=== PATIENT | female | born 1960 | race Caucasian/White ===

== ENCOUNTER 2023-10-09 11:04 | Outpatient (CLI) | payer OTHER, SELFPAY ==
[2023-10-09 12:30] LABS: Hematocrit 40.2 % (37.0-47.0); Hemoglobin 13.4 g/dL (12.0-15.0); Mean Corpuscular HGB Conc 33.3 g/dl (32-36); Mean Corpuscular Hemoglobin 29.6 pg (26-34); Mean Corpuscular Volume 88.9 fl (80-100); Mean Platelet Volume 10.1 fl (7.4-10.4); Platelet Count Result 200 k/mm3 (150-375); Red Blood Count 4.52 M/mm3 (4.2-5.4); Red Cell Distribution Width 13.4 % (11.5-14.5); White Blood Count 5.4 K/mm3 (4.5-10.0)
[2023-10-09 12:44] LABS: Albumin Level 4.6 g/dL (3.5-5.1); Anion Gap 7 mmol/L (4-12); Blood Urea Nitrogen 16 mg/dL (7-17); Calcium 10.1 mg/dL (8.4-10.2); Carbon Dioxide 27 mmol/L (22-30); Chloride 106 mmol/L (98-107); Estimated Glomerular Filt Rate > 60; Glucose 94 mg/dL (65-110); Potassium 3.9 mmol/L (3.4-5.0); Sodium 140 mmol/L (137-145)
[2023-10-09 12:46] LABS: Iron 101 ug/dL (37-170)
[2023-10-09 12:51] LABS: Prealbumin 20.1 mg/dL (17.6-36.0)
[2023-10-15 09:58] LABS: Vitamin B1 6 nmol/L (8-30)
== END 2023-10-09 11:05 | disposition home or self-care (01) ==
PROVIDERS: Visit Provider Surgery Plastic and Reconstructive Surgery
DX: R63.4 Abnormal weight loss (principal)
CPT/HCPCS: 36415; 80048; 82040; 83036; 83540; 84134; 84425; 85027

== ENCOUNTER 2023-10-21 14:24 | Outpatient (CLI) | payer OTHER, SELFPAY ==
--- NOTE | 2023-10-21 14:33 | ECG_ITS ---
Test Date: 2023-10-21 14:43:04 Measurements Intervals [place] Rate: 58 P: 12 KS: 184 QRS: 9 QRSD: 80 T: 24 QT: 402 QTc: 396 Interpretive Statements SINUS BRADYCARDIA LOW QRS VOLTAGE IN PRECORDIAL LEADS PATTERN CONSISTENT WITH PULMONARY DISEASE CONSIDER INFERIOR INFARCT, AGE INDETERMINATE ABNORMAL ECG No previous ECG available for comparison Electronically Signed On 10-21-2023 15:05:39 CDT by Jozfe Rios D.O.
== END 2023-10-21 14:25 | disposition home or self-care (01) ==
LOC: ANHSURGERY 14:28
PROVIDERS: PCP Internal Medicine; Visit Provider Surgery Plastic and Reconstructive Surgery
DX: Z01.818 Encounter for other preprocedural examination (principal); I25.10 Atherosclerotic heart disease of native coronary artery without angina pectoris; R94.31 Abnormal electrocardiogram [ECG] [EKG]
CPT/HCPCS: 93005

== ENCOUNTER 2023-10-29 02:09 | Day surgery (SDC) | payer OTHER, SELFPAY ==
[2023-10-20 09:03] VITALS: BMI 28.0
--- NOTE | 2023-10-20 09:03 | PC.NURSE ---
Report to the Outpatient Waiting Room, entrance under the green pavilion located off [facility], at time _0830_ on date _[id number]_. Planned Procedure Time: _1030_. Time changes happen often and if your time is changed the preop area will call you the afternoon before. - You and your visitor will be asked to self-screen and do not enter if you have any COVID symptoms. - A mask is optional within the hospital at this time. Patients may have clear liquids (water, carbonated beverages, clear teas, apple juice) until 3 hours prior to surgery with a maximum of 20 ounces. - No food from midnight until time of surgery Take the following medications with a SIP of water the morning of surgery: ____None DO NOT STOP ANY OF YOUR OTHER PRESCRIPTION MEDICATIONS PRIOR TO SURGERY ?EXCEPT THE FOLLOWING Medications to discontinue per physician ____Coq10 and Vitamin B-1 Date to take last rnuk___[id number] Rdyizgu says is stopping Aspirin 5 days before surgery. Patient stopped Ara 10-05-2023. Please no make-up, nail chinese, hairspray, perfume, deodorant, or body powder the day of surgery. No jewelry (including any body piercings) or valuables the day of surgery, leave them at home. Please take a shower or bath the night before, or the morning of, surgery with an antibacterial soap. Wear comfortable, loose fitting clothing. - Jewelry must be removed prior to entering the operating room. Rings and piercings that are not removed may be cut off. - The hospital will not accept responsibility for valuables. - Please leave all valuables, including medications, at home the day of surgery. If you are going home after surgery, a licensed goat driver must drive you home. - NO public transportation without another adult if you receive anesthesia. - We recommend that an adult stay with you for 24 hours following discharge. - We also recommend that you do not drive, make important decision, drink alcoholic beverages, or take any drugs that were not prescribed by your health care provider for at least 24 hours after your discharge time. Follow any additional instructions given to you from your surgeon. If you or anyone in your household have experienced Covid symptoms in the past week, please notify your surgeon or the nurse liaison at the phone number below for possible testing. Telephone instructions given to __Pam____and asked if any additional questions and then verbalized understanding. Patient advised to call surgeon office or pre surgery nurse liaison [phone] if any additional questions.
[2023-10-29] VITALS (13 sets, daily range): BP systolic 104–142; BP diastolic 62–79; PULSE 78–99; RESP 12–16; TEMP 36.2–36.6; O2SAT 95–100; BMI 28.8
[2023-10-29] MEDS: LACTATED RINGERS 1,000 ML 30 ML IV CONT ×3 (09:13→17:15)
[2023-10-29 09:28] LABS: Urine Cotinine NEGATIVE
--- NOTE | 2023-10-29 09:37 | P.PNAN_ITS ---
Anes - Initial Pre Proc Eval Procedure: Operation Date: 10/29/23 10:30 Proposed Procedures p Belt Lipectomy with Liposuction - Lee Jose MD Date/Time: 10/29/23 09:37 Surgeon: Lee Jose MD Pre Op Diagnosis: Skin Laxity Patient Data Age: 63 Gender: F Height: 1.63 m Weight: 76 kg Last Vital Signs Temp 97.9 F 10/29/23 09:11 Pulse 83 10/29/23 09:11 BP 130/72 10/29/23 09:11 Pulse Ox 100 10/29/23 09:11 O2 Del Method Room Air 10/29/23 09:11 Allergies Allergy/AdvReac Type Severity Reaction Status Date / Time codeine AdvReac Intermediate Nausea and Verified 10/20/23 08:50 Vomiting Home Medications Medication Instructions Recorded Confirmed Type adalimumab 40 mg/0.4 mL 40 mg subcut [id number] 10/20/23 10/20/23 History subcutaneous pen kit (Humira(CF) Pen) aspirin 81 mg chewable tablet 81 mg PO DAILY 10/20/23 10/20/23 History atorvastatin 80 mg tablet 80 mg PO HS 10/20/23 10/20/23 History coenzyme Q10 100 mg capsule 100 mg PO DAILY 10/20/23 10/20/23 History (CoQ-10) pantoprazole 40 mg tablet,delayed 40 mg PO DAILY 10/20/23 10/20/23 History release thiamine HCl (vitamin B1) 100 mg 100 mg PO DAILY 10/20/23 10/20/23 History tablet (Vitamin B-1) Laboratory Tests 10/29/23 08:45 Cotinine Negative Patient hx anesthesia problems: post op nausea/vomiting Family hx anesthesia problems: none Results Review: All pre-operative results and documents have been reviewed as part of the pre- operative evaluation. PMFSH Social History Social History Years smoked: 2 Smoking status: Former smoker Tobacco type: cigarettes Smoking end date: 10/19/21 Alcohol intake: current Living arrangements: with family Spiritual care concerns: No Anes - Eval Final PreProcedure Day of Procedure 10/29/23 09:37 Patient weight: normal Heart: regular rate and rhythm Lungs: clear to auscultation Airway: Mallampati scale class II Neurological: alert and oriented Last oral intake: >/= 8 hours ASA classification: III Emergent: no Anesthetic plan: proceed Anesthesia type and monitoring: general ETT and standard monitoring Results Review: All pre-operative results and documents have been reviewed as part of the pre-operative evaluation. Informed Consent: The patient's anesthetic plan and its attendant risks and benefits were discussed with the patient/family/POA. Questions were solicited and answers provided to the satisfaction of the patient/family/POA.
[2023-10-29] MEDS: SCOPOLAMINE 1 MG PATCH 1 PATCH TRANSDERM (10:19)
--- NOTE | 2023-10-29 11:05 | WPDHPUPDATE1 ---
History and Physical Update Update Date/Time: 10/29/23 11:05 History and Physical has been reviewed, including an updated exam of the patient. There are NO changes in the patient's condition. Risks, benefits, and alternatives have been discussed and questions answered. Patient agrees to proceed with procedure.
--- NOTE | 2023-10-29 11:05 | W.PM.PROC2 ---
Procedure Note - Detailed Date of Procedure 10/29/23 Pre-op Diagnosis Skin Laxity Post-op Diagnosis Same Procedure Performed Belt lipectomy with suction lipectomy Surgeon Lee Jose MD Anesthesia General Findings Lipoaspirate: 1,500 cc Tissue removed: 3,170 grams Description of Procedure They are here today for the above procedures. Previously and again today the risks, benefits, alternatives were discussed in extensive detail. I wanted them to be very realistic about the risks involved as well as expectations. We discussed aftercare and what to monitor for. I was very upfront about the risks of wound breakdown leading to loss of skin, open wounds, and need for additional procedures with permanent abdominal deformity. We discussed DVT/PE risks and management. Made sure answered all of their questions to their satisfaction today and consent was obtained. They were marked in the preoperative holding area with their verification. The patient was taken to the operating room. Anesthesia was provided by anesthesiology. A Judd catheter was started. Placed prone on the operating room table with care taken to protect from injury. Prepped and draped in a standard sterile fashion. A surgical time-out was taken. Stab incisions were made and tumescent solution was infiltrated. Once adequate time was allowed for hemostasis a 5mm basket and 3mm multi hole cannula were utilized to complete suction lipectomy based on S.A.F.E. technique in multiple planes and passes. Suction lipectomy continued to result based on pre-operative planning, intra-operative observation, and rolling pinch test which were in full agreement. A 10 blade was used to make the upper incision and dissection was continued inferior elevating what we necessary for closure. I placed patient in slight jackknife position and excised intervening tissue. This was closed with 3 point suture with 2-0 Vicryl followed 2-0 PDO strattafix, 3-0 stratafix ,running subcuticular 4-0 Monocryl, and tissue glue. Laterally suzette were placed for turning. Patient was then placed supine with care taken to protect from injury. I placed the patient in a flexed position to verify the upper and lower markings would reach. I then placed supine. A thorough abdominal examination was completed. Stab incisions were made and tumescent solution infiltrated. Stab incisions were made and tumescent solution was infiltrated. Once adequate time was allowed for hemostasis a 5mm basket and 3mm multi hole cannula were utilized to complete suction lipectomy based on S.A.F.E. technique in multiple planes and passes. Suction lipectomy continued to result based on pre-operative planning, intra-operative observation, and rolling pinch test which were in full agreement. A 10 blade was used to make the upper incision. I continued dissection down to the level of fascia. Elevated just what was necessary for repair of the diastasis. I then again flexed the bed to verify the upper skin flap would reach the lower markings without tension. Once verified I placed her supine once again and a 10 blade used to make the lower incision. I elevated up to level the umbilicus and left the umbilicus intact on a well-vascularized stalk. The intervening tissue was removed. She had bilateral inguinal fascial defect present and the fascia was repaired with 2-0 Vicryl. A 2 mm blunt cannula with 0.5% bupivacaine was injected deep to the fascia bilaterally. I plicated the diastasis recti using 0 PDO Stratafix barbed suture. This was in 2 separate layers using 2 separate sutures as well. After the patient was flexed (below) plicated the fascia with 0 PDO Stratafix in two separate layers. The patient was flexed and starting from superior to inferior began plication using 2-0 Vicryl to obliterate all space in a standard progressive tension fashion. At the umbilicus I marked out the location of the skin and inset this wi
[2023-10-29] MEDS: TRANEXAMIC ACID 1,000MG/ISO100 1,000 MG/100 ML BAG 200 MG IVPB (11:19)
[2023-10-29] MEDS: ceFAZolin 2 GM/D5W 50 ML 2 GM/50 ML BAG IVPB (11:33)
[2023-10-29] MEDS: LACTATED RINGERS IRRIG 1,000 ML, LIDOCAINE HCL 1% LOCAL INJ 50 ML, EPINEPHrine HCL INJ ... INFILTRATE (13:00)
[2023-10-29] MEDS: BUPIVACAINE/EPINEPHRINE 0.5% 50 ML VIAL 60 ML INFILTRATE (14:00)
[2023-10-29] MEDS: ceFAZolin SODIUM 1 GM VIAL 2 GM IV PUSH (15:38)
[2023-10-29] MEDS: ONDANSETRON INJ 4 MG/2 ML VIAL IV PUSH (16:33)
[2023-10-29] MEDS: diphenhydrAMINE HCl INJ 50 MG/ML VIAL 12.5 MG IV PUSH ×2 (16:46→17:13)
[2023-10-29] MEDS: fentaNYL CITRATE INJ (*CRX) 100 MCG/2 ML VIAL 25 MCG IV PUSH ×4 (16:50→17:10)
[2023-10-29] MEDS: PROMETHAZINE HCL 25 MG/ML AMPUL 12.5 MG IV PUSH (17:25)
[2023-10-29] MEDS: diazePAM INJ (*CRX) 10 MG/2 ML SYRINGE 2.5 MG IV PUSH (19:10)
[2023-10-29] MEDS: LACTATED RINGERS 1,000 ML 100 ML IV CONT (19:10)
--- NOTE | 2023-10-29 19:47 | SUR.PHASEII ---
1930: Dr. Jose notified of continued nausea and will be putting in admission orders. supervisor forming and tempering made aware.
[2023-10-29] MEDS: oxyCODONE/ACETAMINOPHEN (*CRX) 5-325 MG TABLET PO (20:42)
[2023-10-29 21:59] LABS: Hematocrit 33.8 % (37.0-47.0); Mean Corpuscular HGB Conc 32.5 g/dl (32-36); Mean Corpuscular Hemoglobin 29.3 pg (26-34); Mean Corpuscular Volume 89.9 fl (80-100); Platelet Count Result 166 k/mm3 (150-375); Red Blood Count 3.76 M/mm3 (4.2-5.4); White Blood Count 9.8 K/mm3 (4.5-10.0)
[2023-10-29 22:09] LABS: Estimated CRCL calculation 71 ml/min; Estimated Glomerular Filt Rate > 60
[2023-10-29] MEDS: KETOROLAC 10 MG TABLET PO (22:34)
[2023-10-29] MEDS: carisoprodoL (*CRX) 350 MG TABLET PO (22:34)
[2023-10-29] MEDS: ENOXAPARIN 40 MG/0.4 ML SYRINGE SUB-Q (22:34)
[2023-10-29] MEDS: ATORVASTATIN 40 MG TABLET 80 MG PO (22:34)
[2023-10-29] MEDS: DOCUSATE SODIUM 100 MG CAPSULE PO (22:34)
[2023-10-29] MEDS: LACTATED RINGERS 1,000 ML 125 ML IV CONT (22:36)
[2023-10-30 00:19] VITALS: BP 112/59; PULSE 71; RESP 22; TEMP 36.6; O2SAT 97
[2023-10-30] MEDS: KETOROLAC 10 MG TABLET PO (05:36)
[2023-10-30] MEDS: carisoprodoL (*CRX) 350 MG TABLET PO (05:37)
[2023-10-30 06:10] VITALS: BP 92/56; PULSE 70; RESP 20; TEMP 36.6; O2SAT 93
--- NOTE | 2023-10-30 07:02 | WPDPN ---
Progress Note: A&P Assessment and Plan (1) Skin laxity: Code(s): L57.4 - Cutis laxa senilis Status: Acute Assessment and Plan: Doing well after belt lipectomy and sunction lipectomy . Will discharge home. Today we had a lengthy discussion about the care. Activity limitations. What to monitor for. What is an emergency and when to dial 911 / proceed to the ER. This was a lengthy open ended conversation making sure they were well informed. Answered all their questions. They voiced a clear understanding. Will discharge home. Call with any questions or concerns in the meantime. (2) Localized adiposity: Code(s): E65 - Localized adiposity Status: Acute Subjective Date/time seen: 10/30/23 07:02 Interval history: She had PONV and was provided benzodiazepines. It improved the PONV; however, kept overnight to monitor. Today Doing well after progressive tension abdominoplasty with suction lipectomy. Ambulating. Pain controlled. No nausea / vomiting. No fevers / chills. No shortness of breast. No chest pain. No calf tenderness. Review of Systems Review of Systems: All systems reviewed & are unremarkable except as noted in HPI and below Exam Narrative: Alert & Oriented NOD Respiratory unlabored Abdomen is healing well. No signs of infection. No hematoma. No seroma. Good color and capillary refill. Drain removed. No calf tenderness. Negative Imtiaz's Objective Data Vital Signs Vital Signs: Vital Signs - 24 hr 10/29/23 09:11 10/29/23 16:20 10/29/23 16:35 Temperature 36.6 C 36.2 C L Pulse Rate 83 86 92 Respiratory Rate 14 14 Blood Pressure 130/72 142/76 H 135/78 Pulse Oximetry 100 99 100 Oxygen Delivery Room Air Simple Face Mask Simple Face Mask Oxygen Flow Rate 8 8 10/29/23 16:50 10/29/23 17:05 10/29/23 17:20 Temperature Pulse Rate 95 84 97 Respiratory Rate 15 12 15 Blood Pressure 133/66 130/73 124/77 Pulse Oximetry 99 99 100 Oxygen Delivery Nasal Cannula Nasal Cannula Nasal Cannula Oxygen Flow Rate 3 3 3 10/29/23 17:35 10/29/23 17:44 10/29/23 18:15 Temperature Pulse Rate 99 97 89 Respiratory Rate 16 16 16 Blood Pressure 119/79 127/77 116/68 Pulse Oximetry 95 Oxygen Delivery Room Air Room Air Room Air Oxygen Flow Rate 10/29/23 18:45 10/29/23 19:15 10/29/23 19:43 Temperature Pulse Rate 88 81 78 Respiratory Rate 16 16 16 Blood Pressure 120/72 108/62 104/62 Pulse Oximetry Oxygen Delivery Room Air Room Air Room Air Oxygen Flow Rate 10/29/23 23:41 10/30/23 00:19 Temperature 36.6 C Pulse Rate 71 Respiratory Rate 22 H Blood Pressure 112/59 L Pulse Oximetry 95 97 Oxygen Delivery Room Air Oxygen Flow Rate Intake/Output Intake/Output: Intake & Output 10/27/23 10/28/23 10/29/23 10/30/23 23:59 23:59 23:59 23:59 Intake Total 3050 1000 Output Total 45 Balance 3005 1000 Meds/Results Medications: Active Medications Generic Name Dose Route Start Last Admin Trade Name Freq PRN Reason Stop Dose Admin Atorvastatin Calcium 80 mg 10/29/23 21:36 10/29/23 22:34 Atorvastatin 40 Mg Tablet PO 80 mg HS ALAN Administration Carisoprodol 350 mg 10/30/23 00:00 10/30/23 05:37 Carisoprodol (*Crx) 350 Mg Tablet PO 350 mg Q6HR ALAN Administration Diazepam 2.5 mg 10/29/23 19:49 Diazepam (*Crx) 2.5 Mg Tablet PO TID PRN Anxiety Docusate Sodium 100 mg 10/29/23 21:00 10/29/23 22:34 Docusate Sodium 100 Mg Capsule PO 100 mg Q12HR ALAN Administration Enoxaparin Sodium 40 mg 10/29/23 22:00 10/29/23 22:34 Enoxaparin 40 Mg/0.4 Ml Syringe SUB-Q 40 mg DAILY ALAN Administration Lactated Ringer's 1,000 mls @ 125 mls/hr 10/29/23 19:50 10/30/23 06:53 Lr - Lactated Ringers Iv IV CONT Not Given .Q8H ALAN Ketorolac Tromethamine 10 mg 10/30/23 00:00 10/30/23 05:36 Ketorolac 10 Mg Tablet PO 10/31/23 18:01 10 mg Q6HR ALAN Administration Miscella
--- NOTE | 2023-10-30 07:05 | P.DS_ITS ---
DS: Admitting Diagnosis Discharge Date 10/30/2023 Admitting Diagnosis Skin laxity Localized adiposity DS: Discharge Diagnosis Discharge Diagnosis (1) Localized adiposity: Code(s): E65 - Localized adiposity Status: Acute (2) Skin laxity: Code(s): L57.4 - Cutis laxa senilis Status: Acute DS: Summary Hospital Course Hospital Course: Postoperatively has some PONV after progressive tension abdominoplasty with suction lipectomy. Has done well. Will discharge home. Time Spent with Patient Time attestation: Total time spent providing and/or coordinating discharge services: DS: Data Data Completed and Pending Labs on day of discharge: Labs from last 24 hours 10/29/23 10/29/23 21:52 08:45 WBC 9.8 RBC 3.76 L Hgb 11.0 L Hct 33.8 L MCV 89.9 MCH 29.3 MCHC 32.5 RDW 13.0 Plt Count 166 MPV 10.0 Creatinine 0.70 Estim Creat Clear Calc 71 Estimated GFR > 60 Cotinine Negative Discharge Plan Discharge Patient Disposition: Home, Self-Care Discharge Instructions: POST OPERATIVE DISCHARGE INSTRUCTIONS LEE JOSE M.D. [facility] [id number] [place] [address] * No driving for 24 hours after anesthesia and while you are taking pain medication. * Take all prescribed medication as directed * Diet as tolerated. * No lifting or activity that raises blood pressure for 48 hours. * Regular walking / ambulation. * May shower 24 hours after surgery. Once you shower do not take pain medication before showering as the combination of medication and heat may cause you to feel dizzy or pass out. * No pools or tubs for 2 weeks. * Slowly stand up straight as tolerated. * No straining or lifting more than 20 pounds. * If no bowel movement within 24 hours may use laxative. * Call with any questions or concerns. * Dressing Care: Continue abdominal binder / foam 23 hours per day. If you have any questions or concerns, please call the office . If it is after hours you will be directed to the production line manager exchange. Shortness of breath, chest pain, or other medical emergency dial 911 / proceed to the Emergency Room. Patient Instructions: Dustin-Tyler Drain Care (DC) Stand Alone Forms: General Discharge Instructions Follow-up/Referrals: Lee Jose MD [Physician] - Other (Tomorrow 10/30/2023) Discharge Orders: Discharge Order (Routine); Ordered 10/30/23 Ordered By: Lee Jose Discharge Medications: Continued atorvastatin 80 mg tablet 80 mg PO HS pantoprazole 40 mg tablet,delayed release (DR/EC) 40 mg PO DAILY thiamine HCl (vitamin B1) [Vitamin B-1] 100 mg Tablet 100 mg PO DAILY coenzyme Q10 [CoQ-10] 100 mg Capsule 100 mg PO DAILY Humira(CF) Pen 40 mg/0.4 mL pen injector kit 40 mg SUBCUT [id number] Held aspirin 81 mg tablet,chewable 81 mg PO DAILY Hold Instructions: Resume on 10/30/23.
--- NOTE | 2023-10-30 07:41 | WPDANESPN ---
Anes - Prog Note Post-Op Date/Time: 10/30/23 07:41 Cardiovascular status: normal Respiratory status: normal Airway patency: baseline Mental status: baseline Post-Op hydration status: normal Vital Signs: Last Vital Signs Temp 36.6 C 10/30/23 06:10 Pulse 70 10/30/23 06:10 Resp 20 10/30/23 06:10 BP 92/56 L 10/30/23 06:10 Pulse Ox 93 10/30/23 06:10 O2 Del Method Room Air 10/29/23 23:41 O2 Flow Rate 3 10/29/23 17:20 Pain Score (VAS): 07/28 I/O: Intake & Output 10/29/23 10/29/23 10/30/23 15:59 23:59 07:59 Intake Total 1050 2000 1120 Output Total 45 5 Balance 1050 1955 1115 Laboratory Tests 10/29/23 21:52 10/29/23 21:52 10/29/23 10/29/23 08:45 21:52 WBC 9.8 RBC 3.76 L Hgb 11.0 L Hct 33.8 L MCV 89.9 MCH 29.3 MCHC 32.5 RDW 13.0 Plt Count 166 MPV 10.0 Creatinine 0.70 Estim Creat Clear Calc 71 Estimated GFR > 60 Cotinine Negative Post-procedural complaints: nausea (refractory. Recommend TIVA in future) Patient Feedback: Patient satisfied with anesthetic care.
[2023-10-30 08:00] VITALS: O2SAT 98
[2023-10-30] MEDS: oxyCODONE/ACETAMINOPHEN (*CRX) 5-325 MG TABLET PO (08:45)
[2023-10-30] MEDS: ONDANSETRON INJ 4 MG/2 ML VIAL IV PUSH (08:45)
[2023-10-30] MEDS: ENOXAPARIN 40 MG/0.4 ML SYRINGE SUB-Q (08:46)
[2023-10-30] MEDS: DOCUSATE SODIUM 100 MG CAPSULE PO (08:47)
[2023-10-30] MEDS: PANTOPRAZOLE 40 MG TABLET PO (08:47)
== END 2023-10-30 10:45 | disposition home or self-care (01) ==
LOC: ANHSURGERY 18:12 → ANH3MEDSUR 21:31
PROVIDERS: PCP Internal Medicine; Visit Provider Surgery Plastic and Reconstructive Surgery
PROC: (CPT 15877; principal; 2023-10-29 10:30)
DX: Z41.1 Encounter for cosmetic surgery (principal); L57.4 Cutis laxa senilis; E65 Localized adiposity; I51.9 Heart disease, unspecified; Z79.82 Long term (current) use of aspirin; Z79.620 Long term (current) use of immunosuppressive biologic; Z98.890 Other specified postprocedural states; Z87.891 Personal history of nicotine dependence; Z86.79 Personal history of other diseases of the circulatory system; Z80.3 Family history of malignant neoplasm of breast; Z82.49 Family history of ischemic heart disease and other diseases of the circulatory system
CPT/HCPCS: 15877; 15830; 15847; 36415; 80307; 82565; 85027; A9270; J0171; J0690; J1100; J1170; J1200; J1596; J1650; J2250; J2405; J2550; J2704; J3010; J3360; J7120